=== PATIENT | male | born 1945 | race Two or more races ===

== ENCOUNTER 2017-11-20 11:05 | Inpatient (IN) | payer OTHER ==
[~2017-11-20] VITALS: Ht 172.7 cm; Wt 117.5 kg
[~2017-11-20 11:05] MED LIST: AMLO10TA2 PO; ASP81EC PO; CARV6.2551 PO; CETI10CH PO; GABA300C10 PO; METF-372 PO; ROSU20TA14 PO
[2017-11-20] MEDS ORDERED: DOPamine 3200MCG/ML 250 ML IV SCH (11:11)
[2017-11-20] MEDS ORDERED: MORPHINE SULFATE 4 MG/ML SYR/VIAL IV ONE (11:15)
[2017-11-20] MEDS ORDERED: ONDANSETRON HCL 4 MG/2 ML VIAL IV ONE (11:15)
[2017-11-20] MEDS ORDERED: DOPamine 1600MCG/ML D5W 250 ML IV ONE (11:15)
[2017-11-20] MEDS ORDERED: GLUCAGON HYDROCHLORIDE (RDNA) 1 MG VIAL ONE (11:26)
[2017-11-20] MEDS ORDERED: GLUCAGON HYDROCHLORIDE (RDNA) 1 MG VIAL IV ONE (11:30)
[2017-11-20] MEDS ORDERED: ATROPINE SULF 1 MG/10ml SYR IV ONE (11:30)
[2017-11-20] MEDS ORDERED: ATROPINE SULF 0.5 MG/5ML SYR ONE (11:30)
[2017-11-20] MEDS: DOPamine 1600MCG/ML D5W 250 ML IV ONE ×2 (11:33→11:34)
[2017-11-20] MEDS: DOPamine 3200MCG/ML 250 ML IV SCH (11:34)
[2017-11-20 11:55] LABS: Hemoglobin 8.5 g/dL (13.5-17.5); Mean Corpuscular Hemoglobin 33.7 pg (28.0-32.0); Mean Corpuscular Hgb Conc. 33.9 g/dL (32.0-36.0); Mean Corpuscular Volume 99.6 fL (80.0-100.0); Platelet Count (auto) 155 10^3/uL (140-450); Red Blood Cells 2.51 10^6/uL (4.5-5.90); Red Cell Distribution Width 16.8 % (11.8-14.3); White Blood Cell 5.5 10^3/uL (4.4-10.8)
[2017-11-20 12:04] LABS: Basophils % (manual) 0 (0.0-2.0); Blast Cells 0; Eosinophils % (manual) 0 (0-7); Metamyelocytes % 0; Myelocytes % 0; Promyelocytes % 0; Reactive Lymphocytes 0
[2017-11-20 12:09] LABS: BUN/Creatinine Ratio 11.1; Bilirubin, Total 0.4 mg/dL (0.2-1.0); Magnesium 2.6 mg/dL (1.6-2.6); Potassium 3.7 mmol/L (3.5-5.1); Total Protein 6.5 g/dL (6.4-8.2)
[2017-11-20 12:23] LABS: Band Neutrophils % (manual) 5; Lymphocytes % (manual) 33 (10.0-50.0); Monocytes % (manual) 20 (0-12)
[2017-11-20] MEDS: SODIUM CHLORIDE 0.9% 1,000 ML IV SCH ×2 (13:04→21:04)
[2017-11-20] MEDS ORDERED: TEMAZEPAM 15 MG CAP PO PRN (13:15)
[2017-11-20] MEDS ORDERED: DEXTROSE (50%) 50ML SYRG IV PRN (13:15)
[2017-11-20] MEDS ORDERED: MORPHINE SULF INJ 2 MG/ML SYRINGE 1ML IV PRN (13:15)
[2017-11-20] MEDS ORDERED: NITROGLYCERIN 0.4 MG SL TAB SL PRN (13:15)
[2017-11-20] MEDS ORDERED: LORazepam 0.5 MG TAB PO PRN (13:15)
[2017-11-20] MEDS ORDERED: LACTULOSE 20Gm/30ML SOLN PO PRN (13:15)
[2017-11-20] MEDS: ENOXAPARIN SOD 40 MG/0.4 ML SYRINGE SC SCH (13:17)
[2017-11-20] MEDS: PANTOPRAZOLE 40 MG TAB PO SCH (13:18)
[2017-11-20] MEDS ORDERED: ASPirin-EC 81 mg tab PO ONE (13:30)
[2017-11-20 14:08] LABS: INR 0.98 (0.9-1.15); Partial Thromboplastin Time 26.9 sec (23.78-33.04); Prothrombin Time 10.5 sec (9.27-12.13)
[2017-11-20 15:38] LABS: Urine Bacteria NONE SEEN /hpf (None Seen); Urine Blood Negative /uL (Negative); Urine Specific Gravity 1.003 (1.001-1.035); Urine WBC 1 /hpf (0 - 3)
[2017-11-20] MEDS: ACCU-CHEK COMFORT CURVE STRIP VI SCH ×2 (16:56→22:32)
[2017-11-20] MEDS: InsuLIN REG 1unit/0.01ml Soln (100units/ml) SC SCH ×2 (17:13→22:32)
[2017-11-20] MEDS: PROMETHAZINE HCL 25 MG/ML 1ML IV PRN (17:56)
[2017-11-20 18:09] LABS: Hematocrit 31.1 % (41.0-53.0); Hemoglobin 10.3 g/dL (13.5-17.5)
[2017-11-20] MEDS: ATORVASTATIN 20 MG TAB PO SCH (22:31)
[2017-11-20] MEDS: GABAPENTIN 400 MG CAP PO SCH (22:31)
[2017-11-20] MEDS ORDERED: ASPI-231 PO (23:01)
[2017-11-20] MEDS ORDERED: AMLO10TA2 PO (23:01)
[2017-11-20] MEDS ORDERED: CARV12.544 PO (23:01)
[2017-11-20] MEDS ORDERED: CLOP75TA41 PO (23:01)
[2017-11-20] MEDS ORDERED: GABA300C10 PO (23:01)
[2017-11-20] MEDS ORDERED: CETI10TA80 PO (23:01)
[2017-11-20] MEDS ORDERED: LISI40TA PO (23:01)
[2017-11-20] MEDS ORDERED: DOCU100T15 PO (23:01)
[2017-11-20] MEDS ORDERED: TAMS0.4C36 PO (23:01)
[2017-11-21] VITALS (14 sets, daily range): BP systolic 126–163; BP diastolic 49–75
[2017-11-21 01:00] LABS: Hematocrit 28.5 % (41.0-53.0); Hemoglobin 9.4 g/dL (13.5-17.5)
[2017-11-21] MEDS: SODIUM CHLORIDE 0.9% 1,000 ML IV SCH (06:54)
[2017-11-21] MEDS: ACCU-CHEK COMFORT CURVE STRIP VI SCH ×4 (06:55→21:59)
[2017-11-21] MEDS: InsuLIN REG 1unit/0.01ml Soln (100units/ml) SC SCH ×4 (06:58→21:59)
[2017-11-21 08:18] LABS: Cholesterol 187 mg/dL (< 200); HDL Cholesterol 34 mg/dL (40-59); LDL Cholesterol 87 mg/dL (< 100); Triglycerides 327 mg/dL (< 150)
[2017-11-21 08:22] LABS: Potassium 3.9 mmol/L (3.5-5.1); Sodium 150 mmol/L (136-145)
[2017-11-21 08:23] LABS: Alanine Aminotransferase 19 U/L (16-61); Alkaline Phosphatase 89 U/L (45-117); Anion Gap 7 (5-15); Aspartate Aminotransferase 14 U/L (15-37); BUN/Creatinine Ratio 11.8; Blood Urea Nitrogen 22 mg/dL (7-18); Carbon Dioxide 24 mmol/L (21-32); Chloride 119 mmol/L (98-107); GFR African American 46 mL/min; GFR Non-African American 38 mL/min; Glucose 139 mg/dL (74-106)
[2017-11-21 08:24] LABS: Albumin 3.2 g/dL (3.4-5.0); Bilirubin, Total 0.4 mg/dL (0.2-1.0); Calcium 8.4 mg/dL (8.5-10.1); Total Protein 6.7 g/dL (6.4-8.2)
[2017-11-21 08:36] LABS: Hemoglobin 9.1 g/dL (13.5-17.5); Mean Corpuscular Volume 101.9 fL (80.0-100.0); Red Cell Distribution Width 17.4 % (11.8-14.3); White Blood Cell 24.1 10^3/uL (4.4-10.8)
[2017-11-21 08:38] LABS: Hematocrit 28.4 % (41.0-53.0); Mean Corpuscular Hemoglobin 32.7 pg (28.0-32.0); Mean Corpuscular Hgb Conc. 32.1 g/dL (32.0-36.0); Platelet Count (auto) 148 10^3/uL (140-450); Red Blood Cells 2.79 10^6/uL (4.5-5.90)
[2017-11-21 08:57] LABS: Basophils % (manual) 0 (0.0-2.0); Blast Cells 0; Eosinophils % (manual) 0 (0-7); Promyelocytes % 0; Reactive Lymphocytes 0
[2017-11-21] MEDS: MORPHINE SULFATE 4 MG/ML SYR/VIAL IV PRN (10:19)
[2017-11-21] MEDS ORDERED: PIPERACILLIN-TAZOB 3.375GM 100 ML IV ONE (10:30)
[2017-11-21] MEDS: DOPamine 3200MCG/ML 250 ML IV SCH (11:17)
[2017-11-21] MEDS: CLOPIDOGREL BISULFATE 75 MG TAB PO SCH (11:18)
[2017-11-21] MEDS: ENOXAPARIN SOD 40 MG/0.4 ML SYRINGE SC SCH (11:18)
[2017-11-21] MEDS: PANTOPRAZOLE 40 MG TAB PO SCH (11:19)
[2017-11-21] MEDS: GABAPENTIN 400 MG CAP PO SCH ×2 (11:19→21:45)
[2017-11-21] MEDS: ASPirin-EC 81 mg tab PO SCH (11:19)
[2017-11-21] MEDS: SOD CHL 0.45% 1,000 ML IV SCH ×2 (11:19→18:15)
[2017-11-21] MEDS ORDERED: metroNIDAZOLE 500MG/100ML 100 ML IV ONE (12:00)
[2017-11-21 12:27] LABS: Band Neutrophils % (manual) 9; Lymphocytes % (manual) 6 (10.0-50.0); Metamyelocytes % 1; Monocytes % (manual) 15 (0-12); Myelocytes % 1
[2017-11-21] MEDS: ACETAMINOPHEN 500 MG TAB PO PRN (16:11)
[2017-11-21] MEDS: PIPERACILLIN-TAZOB 3.375GM 100 ML IV SCH (17:27)
[2017-11-21] MEDS: metroNIDAZOLE 500MG/100ML 100 ML IV SCH (21:44)
[2017-11-21] MEDS: ATORVASTATIN 20 MG TAB PO SCH (21:45)
[2017-11-22] VITALS (8 sets, daily range): BP systolic 61–166; BP diastolic 43–82
[2017-11-22] MEDS: PIPERACILLIN-TAZOB 3.375GM 100 ML IV SCH ×4 (00:08→17:36)
[2017-11-22] MEDS: SOD CHL 0.45% 1,000 ML IV SCH ×3 (02:18→18:15)
[2017-11-22] MEDS: PROMETHAZINE HCL 25 MG/ML 1ML IV PRN (02:42)
[2017-11-22] MEDS: MORPHINE SULFATE 4 MG/ML SYR/VIAL IV PRN (02:42)
[2017-11-22] MEDS: metroNIDAZOLE 500MG/100ML 100 ML IV SCH ×3 (05:51→22:37)
[2017-11-22 06:16] LABS: Hematocrit 25.7 % (41.0-53.0); Hemoglobin 8.4 g/dL (13.5-17.5); Mean Corpuscular Hemoglobin 33.1 pg (28.0-32.0); Red Blood Cells 2.54 10^6/uL (4.5-5.90); White Blood Cell 18.6 10^3/uL (4.4-10.8)
[2017-11-22 06:19] LABS: Mean Corpuscular Hgb Conc. 32.7 g/dL (32.0-36.0); Mean Corpuscular Volume 101.2 fL (80.0-100.0); Platelet Count (auto) 138 10^3/uL (140-450); Red Cell Distribution Width 17.4 % (11.8-14.3)
[2017-11-22 06:23] LABS: Basophils % (manual) 0 (0.0-2.0); Blast Cells 0; Eosinophils % (manual) 0 (0-7); Metamyelocytes % 0; Myelocytes % 0; Promyelocytes % 0; Reactive Lymphocytes 0
[2017-11-22] MEDS: ACCU-CHEK COMFORT CURVE STRIP VI SCH ×4 (06:32→22:00)
[2017-11-22] MEDS: InsuLIN REG 1unit/0.01ml Soln (100units/ml) SC SCH ×4 (06:32→22:08)
[2017-11-22] MEDS: ACETAMINOPHEN 500 MG TAB PO PRN (06:36)
[2017-11-22 06:44] LABS: Albumin 2.9 g/dL (3.4-5.0); BUN/Creatinine Ratio 12.1; Bilirubin, Total 0.5 mg/dL (0.2-1.0); Potassium 4.2 mmol/L (3.5-5.1); Total Protein 6.6 g/dL (6.4-8.2)
[2017-11-22 07:05] LABS: Band Neutrophils % (manual) 1; Lymphocytes % (manual) 7 (10.0-50.0); Monocytes % (manual) 10 (0-12)
[2017-11-22] MEDS: PANTOPRAZOLE 40 MG TAB PO SCH (09:20)
[2017-11-22] MEDS: ASPirin-EC 81 mg tab PO SCH (09:20)
[2017-11-22] MEDS: ENOXAPARIN SOD 40 MG/0.4 ML SYRINGE SC SCH (09:20)
[2017-11-22] MEDS: GABAPENTIN 400 MG CAP PO SCH ×2 (09:20→22:00)
[2017-11-22] MEDS: CLOPIDOGREL BISULFATE 75 MG TAB PO SCH (09:20)
[2017-11-22] MEDS ORDERED: MORPHINE SULF INJ 2 MG/ML SYRINGE 1ML IV PRN (10:45)
[2017-11-22] MEDS ORDERED: INSLISPI SC (13:43)
[2017-11-22] MEDS ORDERED: INSLANTI SC (13:43)
[2017-11-22] MEDS: HYDROcodone-ACET 5/325MG TAB PO PRN (16:21)
[2017-11-22] MEDS: ATORVASTATIN 20 MG TAB PO SCH (22:00)
[2017-11-23] MEDS: PIPERACILLIN-TAZOB 3.375GM 100 ML IV SCH ×5 (01:27→23:30)
[2017-11-23] MEDS: HYDROcodone-ACET 5/325MG TAB PO PRN ×2 (02:12→20:33)
[2017-11-23] MEDS: SOD CHL 0.45% 1,000 ML IV SCH ×3 (02:15→18:05)
[2017-11-23 04:39] VITALS: BP 148/64
[2017-11-23] MEDS: metroNIDAZOLE 500MG/100ML 100 ML IV SCH ×3 (05:38→22:08)
[2017-11-23 06:31] LABS: Hemoglobin 7.9 g/dL (13.5-17.5); Platelet Count (auto) 129 10^3/uL (140-450); White Blood Cell 11.3 10^3/uL (4.4-10.8)
[2017-11-23 06:33] LABS: Hematocrit 23.9 % (41.0-53.0); Mean Corpuscular Hemoglobin 33.2 pg (28.0-32.0); Mean Corpuscular Volume 100.6 fL (80.0-100.0); Red Blood Cells 2.37 10^6/uL (4.5-5.90)
[2017-11-23] MEDS: ACCU-CHEK COMFORT CURVE STRIP VI SCH ×4 (06:45→21:49)
[2017-11-23] MEDS: InsuLIN REG 1unit/0.01ml Soln (100units/ml) SC SCH ×4 (06:46→21:48)
[2017-11-23 06:53] LABS: Albumin 2.8 g/dL (3.4-5.0); Calcium 8.1 mg/dL (8.5-10.1); Potassium 3.9 mmol/L (3.5-5.1)
[2017-11-23 06:55] LABS: Bilirubin, Total 0.5 mg/dL (0.2-1.0); Total Protein 6.5 g/dL (6.4-8.2)
[2017-11-23 07:01] LABS: Basophils % (manual) 0 (0.0-2.0); Blast Cells 0; Metamyelocytes % 0; Promyelocytes % 0; Reactive Lymphocytes 0
[2017-11-23 08:30] VITALS: BP 154/77
[2017-11-23 08:55] LABS: Band Neutrophils % (manual) 6; Eosinophils % (manual) 1 (0-7); Lymphocytes % (manual) 11 (10.0-50.0); Monocytes % (manual) 21 (0-12); Myelocytes % 1
[2017-11-23 09:00] VITALS: BP 154/77
[2017-11-23] MEDS: ASPirin-EC 81 mg tab PO SCH (09:08)
[2017-11-23] MEDS: ENOXAPARIN SOD 40 MG/0.4 ML SYRINGE SC SCH (09:08)
[2017-11-23] MEDS: GABAPENTIN 400 MG CAP PO SCH ×2 (09:08→21:48)
[2017-11-23] MEDS: PANTOPRAZOLE 40 MG TAB PO SCH (09:08)
[2017-11-23] MEDS: CLOPIDOGREL BISULFATE 75 MG TAB PO SCH (09:08)
[2017-11-23 13:00] VITALS: BP 157/64
[2017-11-23 17:00] VITALS: BP 169/84
[2017-11-23 21:29] VITALS: BP 163/80
[2017-11-23] MEDS: ATORVASTATIN 20 MG TAB PO SCH (21:48)
[2017-11-23] MEDS ORDERED: LISINOPRIL 20 MG TAB PO ONE (23:00)
[2017-11-24] MEDS: SOD CHL 0.45% 1,000 ML IV SCH ×2 (02:15→10:31)
[2017-11-24 04:47] VITALS: BP 164/79
[2017-11-24] MEDS: metroNIDAZOLE 500MG/100ML 100 ML IV SCH (05:29)
[2017-11-24] MEDS: PIPERACILLIN-TAZOB 3.375GM 100 ML IV SCH ×2 (06:33→12:00)
[2017-11-24 06:34] LABS: Hematocrit 25.2 % (41.0-53.0); Hemoglobin 8.6 g/dL (13.5-17.5); Mean Corpuscular Hemoglobin 33.9 pg (28.0-32.0); Mean Corpuscular Hgb Conc. 34.1 g/dL (32.0-36.0); Mean Corpuscular Volume 99.5 fL (80.0-100.0); Platelet Count (auto) 129 10^3/uL (140-450); Red Blood Cells 2.53 10^6/uL (4.5-5.90); Red Cell Distribution Width 16.1 % (11.8-14.3)
[2017-11-24] MEDS: hydrALAZINE HCL 10 MG TAB PO PRN ×2 (06:34→10:41)
[2017-11-24] MEDS: InsuLIN REG 1unit/0.01ml Soln (100units/ml) SC SCH ×2 (06:34→13:11)
[2017-11-24] MEDS: ACCU-CHEK COMFORT CURVE STRIP VI SCH ×2 (06:34→13:11)
[2017-11-24 06:41] LABS: Basophils % (manual) 0 (0.0-2.0); Blast Cells 0; Metamyelocytes % 0; Myelocytes % 0; Promyelocytes % 0; Reactive Lymphocytes 0
[2017-11-24 06:53] LABS: Albumin 3.1 g/dL (3.4-5.0); BUN/Creatinine Ratio 12.4; Bilirubin, Total 0.5 mg/dL (0.2-1.0); Calcium 8.6 mg/dL (8.5-10.1); Potassium 3.9 mmol/L (3.5-5.1)
[2017-11-24 07:46] LABS: Band Neutrophils % (manual) 3; Eosinophils % (manual) 5 (0-7); Lymphocytes % (manual) 18 (10.0-50.0); Monocytes % (manual) 18 (0-12)
[2017-11-24 08:00] VITALS: BP 169/85
[2017-11-24 09:00] VITALS: BP 161/76
[2017-11-24] MEDS: ASPirin-EC 81 mg tab PO SCH (10:30)
[2017-11-24] MEDS: ENOXAPARIN SOD 40 MG/0.4 ML SYRINGE SC SCH (10:31)
[2017-11-24] MEDS: CLOPIDOGREL BISULFATE 75 MG TAB PO SCH (10:31)
[2017-11-24] MEDS: GABAPENTIN 400 MG CAP PO SCH (10:31)
[2017-11-24] MEDS: PANTOPRAZOLE 40 MG TAB PO SCH (10:31)
[2017-11-24 12:19] VITALS: BP 161/76
[2017-11-24] MEDS ORDERED: cloNIDine HCL 0.1 MG TAB PO ONE (12:45)
== END 2017-11-24 14:32 | disposition home or self-care (01) | DRG 872 ==
LOC: EDBD 11:05 → ER 11:05 → TELE 11:06 → TELE-WESTW 11-22 10:38
PROVIDERS: ADMIT Internal Medicine; ATTEND Family Medicine
PROC: 5A1223Z Performance of Cardiac Pacing, Continuous (ICD-10-PCS; 2017-11-20)
PROC: 5A09357 Assistance with Respiratory Ventilation, Less than 24 Consecutive Hours, Continuous Positive Airway Pressure (ICD-10-PCS; principal; 2017-11-21)
PROC: 5A09357 Assistance with Respiratory Ventilation, Less than 24 Consecutive Hours, Continuous Positive Airway Pressure (ICD-10-PCS; 2017-11-22)
DX: A41.9 Sepsis, unspecified organism (principal); E87.0 Hyperosmolality and hypernatremia; I13.0 Hypertensive heart and chronic kidney disease with heart failure and stage 1 through stage 4 chronic kidney disease, or unspecified chronic kidney disease; N17.9 Acute kidney failure, unspecified; E03.9 Hypothyroidism, unspecified; E11.21 Type 2 diabetes mellitus with diabetic nephropathy; E11.22 Type 2 diabetes mellitus with diabetic chronic kidney disease; E11.42 Type 2 diabetes mellitus with diabetic polyneuropathy; E66.01 Morbid (severe) obesity due to excess calories; E78.00 Pure hypercholesterolemia, unspecified; G47.33 Obstructive sleep apnea (adult) (pediatric); I25.10 Atherosclerotic heart disease of native coronary artery without angina pectoris; I50.9 Heart failure, unspecified; K46.9 Unspecified abdominal hernia without obstruction or gangrene; K52.9 Noninfective gastroenteritis and colitis, unspecified; K57.90 Diverticulosis of intestine, part unspecified, without perforation or abscess without bleeding; N18.3 Chronic kidney disease, stage 3 (moderate); T44.7X5A Adverse effect of beta-adrenoreceptor antagonists, initial encounter; Y92.89 Other specified places as the place of occurrence of the external cause; Z79.4 Long term (current) use of insulin; Z80.0 Family history of malignant neoplasm of digestive organs; Z82.49 Family history of ischemic heart disease and other diseases of the circulatory system; Z87.891 Personal history of nicotine dependence; Z95.1 Presence of aortocoronary bypass graft; Z95.5 Presence of coronary angioplasty implant and graft; Z79.82 Long term (current) use of aspirin; Z79.899 Other long term (current) drug therapy; Z68.39 Body mass index [BMI] 39.0-39.9, adult
CPT/HCPCS: 33210; 36415; 71045; 74176; 80053; 80061; 81001; 82270; 82550; 82962; 83036; 83605; 83735; 83880; 84443; 84484; 85007; 85014; 85018; 85027; 85045; 85379; 85610; 85652; 85730; 86141; 87040; 87070; 87077; 87081; 87086; 87186; 87205; 87493; 93005; 93306; 93970; 94660; 96372; 96374; 96375; 99291; A6257; J0461; J1265; J1815; J2405; J2543; J3490